=== PATIENT | female | born 2000 | race Caucasian/White ===

== ENCOUNTER 2024-03-13 19:11 | Emergency (ER) | payer OTHER, SELFPAY ==
[2024-03-13] MEDS ORDERED: Ondansetron ODT 4 MG TAB ONE (19:37)
[2024-03-14 23:40] LABS: SARS-CoV-2 N1 Positive; SARS-CoV-2 N2 Positive; SARS-CoV-2 RNAse P1 Positive
== END 2024-03-13 19:56 | disposition home or self-care (01) ==
LOC: BURERS 19:11
DX: U07.1 COVID-19 (principal)
CPT/HCPCS: 87635; 99283; Q0162

== ENCOUNTER 2025-04-12 07:25 | Emergency (ER) | payer SELFPAY ==
[2025-04-12] MEDS ORDERED: Ondansetron PF 4 MG/2 ML Vial ONE (08:06)
[2025-04-12 08:22] LABS: Glucose, Urine (Dipstick) Negative (Negative); Leukocyte Small (Negative); Protein, Urine (Dipstick) Trace mg/dL (Neg-Trace); Specific Gravity, Urine 1.020 (1.005-1.030)
[2025-04-12 08:26] LABS: #Basophils 0.3 thou/uL (0.0-0.2); #Eosinophils 0.0 thou/uL (0.0-0.7); #Lymphocytes 0.7 thou/uL (1.20-3.40); #Monocytes 0.9 thou/uL (0.11-0.59); #Neutrophils 8.7 thou/uL (1.40-6.50); %Basophils 2.9 % (0.0-1.0); %Eosinophils 0.0 % (0.0-10.0); %Lymphocytes 6.7 % (21.0-51.0); %Monocytes 8.8 % (0.0-10.0); %Neutrophils 81.7 % (42.0-75.0); Hematocrit 39.5 % (36.0-47.0); Hemoglobin 14.6 g/dL (12.0-16.0); MDiff Complete? YES; Manual Diff?? NO; Mean Corpuscular Hemoglobin 30.7 pg (27.0-31.0); Mean Corpuscular Volume 83.1 fl (78.0-98.0); Platelet Count 226 10x3/uL (130-400); Red Blood Cell (RBC) Count 4.76 mill/uL (4.20-5.40); White Blood Cell (WBC) Count 10.6 10x3/uL (4.8-10.8)
[2025-04-12 08:30] LABS: Pregnancy Test - Urine (BHCG) Negative (Negative); Pregu Control Background? CLEAR/WHITE (CLR/WHITE); Pregu Control Bar Appear? YES (CONTROL BAR)
[2025-04-12 08:31] LABS: Bacteria/HPF Rare-Few HPF (None Seen); CAUTI Indications for Culture Acute Hematuria
[2025-04-12 08:32] LABS: Urine Culture Reflex Yes Yes
[2025-04-12 08:39] LABS: Troponin I Less than 0.010 ng/mL (< 0.028)
[2025-04-12 08:41] LABS: ALT (SGPT) 45 U/L (Less than 34); AST (SGOT) 32 U/L (11-34); Albumin 4.5 g/dL (3.1-4.5); Alkaline Phosphatase 50 U/L (40-110); Anion Gap 19 mmol/L (10-20); BUN (Urea Nitrogen) 10 mg/dL (7.0-18.7); Bilirubin, Total 1.0 mg/dL (0.3-1.2); Calc. Creatinine Clearance 0 mL/min (70-130); Calcium 8.9 mg/dL (7.8-10.44); Carbon Dioxide 20 mmol/L (22-29); Chloride 102 mmol/L (98-107); Globulin 3.3 g/dL (2.4-3.5); Glucose 137 mg/dL (70-105); Magnesium 1.5 mg/dL (1.6-2.6); Potassium 3.7 mmol/L (3.5-5.1); Sodium 137 mmol/L (136-145)
[2025-04-12] MEDS ORDERED: Mag-Al Plus 1200/1200/120 MG (30 mL) UDCUP ONE (08:57)
[2025-04-12] MEDS ORDERED: Lidocaine Viscous Sol 2% 15 ml UD Cup ONE (08:57)
[2025-04-12] MEDS ORDERED: Magnesium 2 GM/50 ML BAG (IN WATER) ONE (09:31)
[2025-04-12] MEDS ORDERED: cefTRIAXone (ROCEPHIN) 1 GM VIAL ONE (09:31)
[2025-04-12] MEDS ORDERED: Ketorolac Tromethamine 30 MG (1 mL) VIAL ONE (10:28)
[2025-04-12] MEDS ORDERED: Iopamidol 370 76% 100 ML VIAL ONE (15:08)
== END 2025-04-12 11:47 | disposition home or self-care (01) ==
LOC: BURERS 07:25
DX: K21.00 Gastro-esophageal reflux disease with esophagitis, without bleeding (principal); E86.0 Dehydration; N39.0 Urinary tract infection, site not specified
CPT/HCPCS: 36415; 71260; 80053; 81001; 81025; 83735; 84484; 85025; 87086; 87428; 93005; 96361; 96365; 96366; 96375; J0696; J1885; J2919; J3475; Q9967